=== PATIENT | male | born 1955 | race Caucasian/White ===

== ENCOUNTER 2016-11-12 14:28 | Inpatient (IN) | payer OTHER ==
[~2016-11-12] VITALS: Ht 188 cm; Wt 122.5 kg
[~2016-11-12 14:28] MED LIST: ASPIR-LOW81 MG PO; ASPIRIN 325MG325 MG NG; BACTRIM D.S. TAB1 EA PO; CATAPRES 0.1MG0.1 MG PO; CHRONULAC20 GM/30 M PO; DALVANCE500 MG IV; FERROUS SULFAT325 M2 PO; FOLIC ACID 1 MG1 MG PO; HYDRALAZINE HCL25 MG PO; JUVEN PACKET1 EACH PO; KAYEXALATE POWDE1 GM PO; KEFLEX500 MG PO; LEVEMIR100 UNIT/1 SQ; LIPITOR TAB 2020 MG PO; LOPRESSOR 25 MG25 MG PO; MIRALAX17 GM PO; NEURONTIN 300300 MG PO; NORVASC 5 MG TAB5 MG PO; PERCOCET 10-321 EACH PO; PLAVIX75 MG PO; SENNA-DOCUSATE1 EACH PO; VITAMIN B-121000 MC3 PO; VITAMIN C 500500 MG PO; ZINC SULFATE220 M1 PO; ZOLOFT100 MG PO
[2016-11-12 20:15] LABS: HEMOGLOBIN 10.2 gm/dl (14.0-17.5); RED BLOOD COUNT 3.23 M/UL (4.20-5.50); WHITE BLOOD COUNT 5.4 K/UL (4.5-11.0)
[2016-11-12] MEDS ORDERED: BUMEX 1MG TABLET1 MG PO (21:12)
[2016-11-12] MEDS ORDERED: HUMALOG100 UNIT/1 SQ (21:13)
[2016-11-12] MEDS ORDERED: TOUJEO (21:15)
[2016-11-14 04:49] LABS: HEMOGLOBIN 9.6 gm/dl (14.0-17.5); RED BLOOD COUNT 3.08 M/UL (4.20-5.50); WHITE BLOOD COUNT 4.6 K/UL (4.5-11.0)
[2016-11-15 05:33] LABS: HEMOGLOBIN 9.8 gm/dl (14.0-17.5); RED BLOOD COUNT 3.12 M/UL (4.20-5.50); WHITE BLOOD COUNT 4.5 K/UL (4.5-11.0)
[2016-11-16 05:41] LABS: HEMOGLOBIN 9.8 gm/dl (14.0-17.5); RED BLOOD COUNT 3.15 M/UL (4.20-5.50); WHITE BLOOD COUNT 4.9 K/UL (4.5-11.0)
[2016-11-19] MEDS ORDERED: LISINOPRIL5 MG PO (11:43)
[2016-11-19] MEDS ORDERED: LORTAB 7.5-3251 EACH PO (11:45)
[2016-11-19] MEDS ORDERED: LEVAQUIN750 MG PO (11:47)
== END 2016-11-19 14:30 | disposition home health service (06) | DRG 638 ==
LOC: M/S 14:28
PROVIDERS: Physician Assistant; ADMIT Internal Medicine
DX: E11.621 Type 2 diabetes mellitus with foot ulcer (principal); M86.9 Osteomyelitis, unspecified; L03.116 Cellulitis of left lower limb; I50.22 Chronic systolic (congestive) heart failure; I13.0 Hypertensive heart and chronic kidney disease with heart failure and stage 1 through stage 4 chronic kidney disease, or unspecified chronic kidney disease; D61.818 Other pancytopenia; G62.9 Polyneuropathy, unspecified; L97.521 Non-pressure chronic ulcer of other part of left foot limited to breakdown of skin; I25.5 Ischemic cardiomyopathy; E11.22 Type 2 diabetes mellitus with diabetic chronic kidney disease; N18.3 Chronic kidney disease, stage 3 (moderate); E78.5 Hyperlipidemia, unspecified; D64.9 Anemia, unspecified; E11.65 Type 2 diabetes mellitus with hyperglycemia; F32.9 Major depressive disorder, single episode, unspecified; E87.5 Hyperkalemia; I25.10 Atherosclerotic heart disease of native coronary artery without angina pectoris; Z89.422 Acquired absence of other left toe(s); Z91.14 Patient's other noncompliance with medication regimen; Z95.1 Presence of aortocoronary bypass graft; Z95.5 Presence of coronary angioplasty implant and graft; Z95.810 Presence of automatic (implantable) cardiac defibrillator; Z86.14 Personal history of Methicillin resistant Staphylococcus aureus infection; Z79.4 Long term (current) use of insulin; Z79.82 Long term (current) use of aspirin; Z79.899 Other long term (current) drug therapy; I25.2 Old myocardial infarction; Z82.49 Family history of ischemic heart disease and other diseases of the circulatory system; Z84.1 Family history of disorders of kidney and ureter; Z80.9 Family history of malignant neoplasm, unspecified
CPT/HCPCS: 36415; 73700; 78315; 80048; 80053; 80202; 82962; 84403; 85025; 85027; 85610; 86140; 87070; 87205; A9503; J1644; J3370; J7040; J7050; J7070; Q0162